=== PATIENT | female | born 1945 | race Caucasian/White ===

== ENCOUNTER 2025-07-25 10:30 | Outpatient (REF) | payer MEDICARE, SELFPAY ==
[2025-07-25 11:02] VITALS: BP 166/77; PULSE 67; RESP 16; O2SAT 96; BMI 35.2
--- OUTSIDE RECORDS SUMMARY | 2025-07-25 12:51 | XMS_ITS | Encounter Summary ---
Author Organization [facility] Address [address] [place] [id number] Phone Care Team Providers Care Window Glazier Name Role Phone Estiven Darling MD Unavailable Dariel Alberto PA-C Primary Care Provider [phone] Encounter Details Date Type Department Care Team (Late st Contact Info) Description 05/13/2025 Procedure Pass [facility], Ct Scan - [address] [address] Social History Tobacco Use Types Packs/Day Years Used Date Smoking Tobacco: Former Cigarettes 0.5 20 0 02/01/1975 - 02/01/1995 Smokeless Tobacco: Never Alcohol Use Standard Drinks/Week Comments Yes 0 (1 standard drink = 0.6 oz pur e alcohol) 1-2 drinks, 2-4 x month Child or Family Care Answer Date Record ed Do you have problems with on e of the following making it difficult for you to work, study, or receive health care? No 08/14/2022 Education Answer Date Recorded Are you interested in more education? Not on reyna e 08/18/2024 Are you concerned about learning? Not on file 08/18/2024 No 08/18/2024 No 08/18/2024 Food Answer Date Recorded Within the past 6 months we worried whether our food would run out before we got money to buy more. Never True 08/14/2022 Within the past 6 months the food we bought just didn't last and we didn't have enough money to get more. Never True Residential Stability Answer Date Recor ded What is your housing situation today? I have bob chahal 08/14/2022 How many times have you move d in the past 12 months? Zero (I did not move) 08/14/2022 Paying for Meds Answer Date Recorded Do you have trouble paying for medicines? No 08/14/2022 Paying Utility Bills Answer Date Record ed Do you have trouble paying your heating or elect ricity bill? No 08/14/2022 Transportation Answer Date Recorded Has the lack of transportati on kept you from medical appointments or from getting medications? No 08/14/2022 Unemployment Answer Date Recorded Are you currently unemployed or working on a part-time or temporary basis, and looking for work? No 08/14/2022 Digital Access Answer Date Recorded No 03/25/2023 No 03/25/2023 Reliable internet access at home? Not on file 03/25/2023 Device with a working camera? Not on file Intimate Partner Violence Answer Date R ecorded Denied Basic Needs Not on file 12/21/2024 In the past 12 months have y ou been in a relationship with a person who hurts, threatens, or tries to control you? No 12/21/2024 Worried food would run out Not on file 12/21 In the past 12 months have y ou been in a relationship with a person who hurts, threatens, or tries to control you? No 12/21/2024 Comments No Sex and Gender Information Value Date Recorded Sex Assigned at Female 05/09/2020 9:57 AM EDT Legal Sex Female 10:09 PM EDT Gender Identity Female 05/09/2020 9:57 AM EDT Sexual Orientation Not on file documented as of this encounter Plan of Treatment Upcoming Encounters Date Type Department Care Team (Latest Contact Info) Description 07/26/2025 3:00 PM EDT Office Visit [facility] [address] [place] [address] Dariel Alberto PA-C [address] [place] [address] [email or web address] 08/10/2025 10:00 AM EDT Office Visit [facility] [address] [address] Candy Kee PA-C [address] [place] [address] Orthopedics Sports [facility], [place] [address] [email or web address] 09/06/2025 Procedure Pass [place] Admitting Dept - Virtual Department [address] [place] [id number] 09/06/2025 7:30 AM EST Hospital Encounter OR Admitting Dept - Virtual Department [address] [place] [address] Fazal Salazar MD [address] [place] [address] [place] [address] [email or web address] 09/06/2025 7:30 AM EST - 09/06/2025 11:05 AM EST Surgery OR Admitting Dept - Virtual Department [address] [place] [address] Fazal Salazar MD [address] [place], [place] [address] [address] [email or web address] ARTHROPLASTY TOTAL KNEE 09/19/2025 4:00 PM EST Office Visit [facility] [address] [place] [address] Fazal Salazar MD [address] [place] [address] Orthopedics Sports [facility], [place] [address] [email or web address] 10/17/2025 1:30 PM EST Office Visit [facility] [address] [place] [address] Fazal Salazar MD [address] [place] [address] [facility] [place] [address] [email or web address] Scheduled Procedures Name Priority Associated Diagnoses Date/Ti me ARTHROPLASTY TOTAL KNEE Primary osteoarthritis of right knee 09/06/2025 7:30 AM EST documented as of this encounter Visit Diagnoses Not on filedocumented in this encounter Additional Health Concerns Assessment Noted Time PHQ-2 Depression Total Score: 0 12/21/19 7:54 AM EST documented as of this encounter Care Teams Window Glazier Relationship Specialty Start Date End Date Dariel Alberto PA-C [address] [place] [address] [email or web address] PCP - General Physician Source Inspector 06/18/24 Estiven Darling MD [address] [place] [address] [place] [address] Ophthalmology 05/17/20 documented as of this encounter Additional Source Comments The information contained in this document represents components of the legal health record. It is not the complete legal health record.[facility]
--- OUTSIDE RECORDS SUMMARY | 2025-07-25 12:53 | XMS_ITS | Clinical Summary ---
Author Organization [facility] Address [address] [facility] [address] [place] [phone] Phone Care Team Providers Care Airconditioning Drafting Officer Name Role Phone Estiven Darling MD Unavailable Dariel Alberto PA-C Primary Care Provider [phone] Allergies Active Allergy Reactions Criticality Noted Date Comments Other Swelling 02/05/2018 Bee stings Throat and localized swelling Penicillins Rash Low 02/05/2018 Medications cholecalciferol (VITAMIN D3) 1,000 unit tablet Take 1 tablet by mouth daily. Active MULTIVITAMIN ORAL Orally ONE CHEW GUMMIES DAILY Active magnesium oxide 500 mg Tab Take 250 mg by mouth every evening. As needed Active potassium chloride (KLOR-CON) 8 MEQ ER tablet Take 8 mEq by mouth daily. Active gabapentin (NEURONTIN) 300 MG capsule TAKE 2 CAPSULES (600 MG) BY MOUTH EVERY NIGHT AT BEDTIME 180 capsule 3 5 Active meloxicam (MOBIC) 15 MG tablet Take 1 tablet (15 mg total) by mouth daily as needed for pain 90 tablet 3 5 Active atorvastatin (LIPITOR) 20 MG tabletIndications: Mixed hyperlipidemia TAKE 1 TABLET BY MOUTH DAILY 90 tablet 3 5 Active losartan (COZAAR) 100 MG tabletIndications: Essential hypertension TAKE 1 TABLET BY MOUTH DAILY 90 tablet 5 Active acetaminophen/diph enhydramine (ACETAMINOPHEN PM ORAL) Take by mouth. Active dilTIAZem (CARDIZEM CD) 300 MG 24 hr capsule Take 1 capsule (300 mg total) by mouth daily. 30 capsule 2 5 Active oxyCODONE-acetamin ophen (PERCOCET) 5-325 mg per tabletIndications: Spondylolisthesis of lumbar region Take 1 tablet by mouth 2 (two) times a day as needed for pain (specific location in comments). 30 tablet 5 Active DILT-XR 240 mg 24 hr capsule TAKE 1 CAPSULE BY MOUTH DAILY 90 capsule 3 4 025 Discontin ued(No longer taking) oxyCODONE-acetamin ophen (PERCOCET) 5-325 mg per tabletIndications: Spondylolisthesis of lumbar region Take 1 tablet by mouth 2 (two) times a day as needed for pain (specific location in comments). 30 tablet 5 025 Discontin ued(Reord er) Active Problems Problem Noted Date Diagnosed Date Post-traumatic osteoarthritis of right knee 06/2025 Assessment & Plan (03/10/2025 4:13 PM EDT): Intra-articular steroid injection today as detailed in procedure note. I explained to the patient and her daughter that her knee alignment is abnormal enough that non-surgical mgmt may prove inadequate. She is not currently interested in surgical intervention so hopefully the intra-articular steroid injection will afford her at least short-term relief. We discussed trial off meloxicam to help patrol judge if benefit > risk. Given that there is no clinical evidence concerning for underlying or co- morbid inflammatory arthritis, there is no indication for ongoing rheum-specific mgmt. I recommend referral to Dr. Faulkner of [facility] sports medicine for further mgmt. I did complete paperwork for a handicapped parking placard today on the request of the patient's daughter. Routine general medical exam ination at a health care facility 12/23/2024 Chronic midline low back pain without sciatica 0 12/23/2024 Long-term current use of opiate analgesic 2023 Assessment & Plan (09/01/2024 2:03 PM EDT): Opiate agreement signed with U tox Weight gain 09/01/2024 Assessment & Plan (09/01/2024 2:04 PM EDT): Patient states that she has gained weight but feels that this is most likely related to diet. We will obtain a TSH level as she has not had 1 in the past. 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 Patient has been seen at [facility] and pain management in the past. She is managed on Percocet and gabapentin. She had been on the meloxicam however states that this has not provided much relief. 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 Patient has been seen at [facility] in the past. She is managed on Percocet and gabapentin. She had been on the meloxicam however states that this has not provided much relief. U-Tox obtained today Opiate agreement signed today. Essential hypertension 02/05/2018 Assessment & Plan (06/28/2025 4:28 PM EDT): Patient with a history of hypertension who is on diltiazem 240 mg daily and losartan 100 mg daily noted to have elevated systolic pressures initially on arrival. After repeat blood pressure she was noted to be 152/98 given this elevated blood pressure and upcoming knee surgery I would prefer to get her blood pressure well- controlled therefore we had a long discussion with regards to medications. I will bump her diltiazem up to 300 mg daily and keep her losartan at 100 mg daily and she will need to come in for a blood pressure check in 1 week. She is due to see me for a preop visit in 1 month. Assessment & Plan (09/01/2024 1:58 PM EDT): Well-controlled Continue diltiazem 240 mg p.o. daily and losartan 100 mg p.o. daily Mixed hyperlipidemia 02/05/2018 Assessment & Plan (06/28/2025 4:29 PM EDT): Patient with a past medical history of hyperlipidemia who is maintained on Lipitor 20 mg daily with her last lipid panel being within normal limits in December 2024. We will continue Lipitor 20 mg daily and obtain a repeat lipid panel. Assessment & Plan (09/01/2024 1:59 PM EDT): Last lipid panel was well within normal limits in December 2023. Continue Lipitor 20 mg p.o. daily Chronic pain of both knees 02/05/2018 Assessment & Plan (09/01/2024 2:05 PM EDT): Knee pain noted bilaterally which has been ongoing for quite some time. Patient states that she has been using the Mobic but has not noticed a difference in her pain. She has used also the Voltaren gel without any relief. She has used the CBD gel which has provided some relief. We will obtain a CRP, ESR, rheumatoid factor, STEPHON, and Lyme Resolved Problems Problem Noted Date Diagnosed Date Resolved Date Elevated alkaline phosphatase level 12/23/2024 06/28/2025 Age-related cataract of both eyes 06/02/2020 09/01/2024 Elevated LDL cholesterol level 02/05/2018 09/01/2024 History of colon polyps 02/05/201808/05 Osteopenia 02/05/2018 09/01/2024 Tubular adenoma of colon 02/05/2018 Incisional hernia, without o bstruction or gangrene 02/05/2018 09/01/2024 Encounters Date Type Department Care Team Description 07/12/2025 11:00 AM EDT Nurse Only [facility] [address] [facility] [place] [address] Dariel Alberto PA-C Essential hypertension (Primary Dx); Blood pressure check 07/12/2025 Telephone [facility] [address] [facility] [place] [address] Dariel Alberto PA-C Results 06/28/2025 4:02 PM EDT - 06/28/2025 11:59 PM EDT Hospital Encounter [facility] [address] [place] [address] Dariel Alberto PA-C Discharge Disposition: Home or Self Care 06/28/2025 2:40 PM EDT Office Visit [facility] [address] [place] [address] Dariel Alberto PA-C Spondylolisthesis of lumbar region (Primary Dx); Long-term current use of opiate analgesic; Mixed hyperlipidemia; Radiculopathy of lumbar region; Essential hypertension 06/28/[address] [address] Jessica Villasenor Appointment 06/07/2025 12:17 PM EDT - 06/07/2025 11:59 PM EDT Hospital Encounter [facility], Ct Scan - [facility] [address] [place] [address] Fazal Salazar MD Discharge Disposition: Home or Self Care 05/24/2025 Telephone [facility] [address] [place] [address] Fazal Salazar MD Rheumatology Clearance 05/18/2025 12:36 PM EDT - 05/18/2025 11:59 PM EDT Hospital Encounter [facility] [address] [place] [address] Fazal Salazar MD Discharge Disposition: Home or Self Care 05/13/2025 2:00 PM EDT Office Visit [facility] [address] [place] [address] [place] [address] Fazal Salazar MD Primary osteoarthritis of right knee (Primary Dx) 05/13/2025 12:58 PM EDT - 05/13/2025 11:59 PM EDT Hospital Encounter [facility], X-Ray - [address] [place] [id number] Fazal Salazar MD Discharge Disposition: Home or Self Care 05/13/2025 Procedure Pass [facility], Ct Scan - [facility] [address] [place] [address] 05/09/2025 Orders Only [facility] [address] [place] [address] Myra Rinaldi MA Right knee pain (Primary Dx) from Last 3 Months Immunizations Immunization Administration Dates Next Due COVID-19 (Pre-08/25) Pfizer Vaccine, mRNA, PF 08/01/2021,12/30/2020,12/08/2020 INFLUENZA, SPLIT VIRUS, TRIV ALENT W/ PRESERVATIVE IM 07/29/2012,07/12/2011 Influenza High-Dose Quadriva lent Preservative Free IM 08/20/2022,07/19/2020 Influenza High-Dose Trivalen t Preservative Free IM 09/01/2024,07/23/2018,08/15/2016,08/04 Influenza Quadrivalent Adjuv anted Preservative Free IM 08/17/2023,08/01/2021 Influenza Quadrivalent MDCK w/Preservative IM 07/21/2019 Influenza, Unspecified Formulation 07/23/2018 Pneumococcal conjugate PCV13 09/08/2014 Pneumococcal polysaccharide PPSV23 02/05/2018 Td (adult) 5 Lf Tetanus Toxo id, PF, Adsorbed 05/22/2012 Td (adult),2 Lf Tetanus Toxo id, PF, Adsorbed 01/08/2016 Zoster recombinant 07/19/2020,05/09/2020 Family History Medical History Relation Comments Atrial fibrillation Brother 1 Leukemia Brother 1 Leukemia Brother 2 No Known Problems Daughter Stroke Father Subarachnoid hemorrhage Mother Liver disease Son Relation Status Comments Brother 1 Alive Brother 2 Alive Daughter Alive Father (Age 79) Mother (Age 91) Son Alive Social History Tobacco Use Types Packs/Day Years Used Date Smoking Tobacco: Former Cigarettes 0.5 20 0 02/01/1975 - 02/01/1995 Smokeless Tobacco: Never Tobacco Cessation:Counseling Given: Not Answered Alcohol Use Standard Drinks/Week Comments Yes 0 [...] your housing situation today? I have bob sing 08/14/2022 How many times have you move [...] AM EDT Sexual Orientation Not on file Last Filed Vital Signs Vital Sign Reading Time Taken Comments Blood Pressure 148/80 07/12/2025 10:53 AM EDT Pulse 65 07/12/2025 10:53 AM EDT Temperature 36.4 C (97.6 F) 09/01/2024 12:59 PM EDT Respiratory Rate 23 07/12/2025 10:53 AM EDT Oxygen Saturation 98% 07/12/2025 10:53 AM EDT Inhaled Oxygen Concentration - - Weight 85.5 kg (188 lb 9.6 oz) 06/28/2025 2:42 P M EDT Height 151.1 cm (4' 11.49 ) 06/28/2025 2:42 PM E DT Body Mass Index 37.47 06/28/2025 2:42 PM EDT Plan of Treatment Upcoming Encounters Date Type Department Care Team (Latest Contact Info) Description 07/26/2025 3:00 PM EDT Office Visit [facility] [address] [place] [address] Dariel Alberto PA-C [address] [place] [address] [email or web address] 08/10/2025 10:00 AM EDT Office Visit [facility] [address] [place] [address] Candy Kee PA-C [address] [place] [address] [facility] [place], [place] [address] [email or web address] 09/06/2025 Procedure Pass OR Admitting Dept - Virtual Department [address] [place] [id number] 09/06/2025 7:30 AM EST Hospital Encounter OR Admitting Dept - Virtual Department [address] [place] [address] Fazal Salazar MD [address] [place] [address] Orthoped[facility] Medicine, [place], [place] [id number] [email or web address] 09/06/2025 7:30 AM EST - 09/06/2025 11:05 AM EST Surgery OR Admitting Dept - Virtual Department [address] [place] [phone] Fazal Salazar MD [address] [place] [address] Orthopedics Sports [facility], [place] [address] [email or web address] ARTHROPLASTY TOTAL KNEE 09/19/2025 4:00 PM EST Office Visit [facility] [address] [place] [address] Fazal Salazar MD [address] [place] [address] Orthopedics Sports [facility], [place] [address] [email or web address] 10/17/2025 1:30 PM EST Office Visit [facility] [address] [place] [address] Fazal Salazar MD [address] [place] [address] Orthopedics Sports [facility], [place] [address] [email or web address] Scheduled Procedures Name Priority Associated Diagnoses Date/Ti me ARTHROPLASTY TOTAL KNEE Primary osteoarthritis of right knee 09/06/2025 7:30 AM EST Health Maintenance Due Date Last Done Comments RSV VACCINE (1 - 1-dose 75+ series) 01/10/2020 INFLUENZA VACCINE (#1) 2025 , 08/17/2023, 08/20/2022, Additional history exists COVID-19 VACCINE (2024- season) 2025 08/01/2021, 12/30/2020, 12/08/2020 DEPRESSION SCREENING 12/21/2025 12/21/2024 FOLLOW UP BONE DENSITY TESTING 12/23/2025 02/11/2018 Postponed from 02/12/2020 (Patient Declines / Guardian Declines) Adult Td,Tdap Booster 01/07/2026 01/08/2016, 012 BLOOD PRESSURE 2026 07/12/2025 CREATININE LEVEL 06/28/2026 06/28/2025, , 12/17/2023, Additional history exists POTASSIUM LEVEL 06/28/2026 06/28/2025, 12/04, 12/17/2023, Additional history exists LIPID PANEL 06/28/2030 06/28/2025, 12/04, 12/17/2023, Additional history exists PNEUMOCOCCAL VACCINES (50+ years) Completed 02/05/2018, 09/08/2014 OSTEOPOROSIS SCREENING INITIAL (ONE-TIME) Completed 02/11/2018 ZOSTER VACCINES Completed 07/19/2020, 05/09/2020 SMOKING STATUS SCREENING (Once After 26 Yrs) Completed 06/28/2025 HEPATITIS A VACCINES Aged Out No long er eligible based on patient's age to complete this topic HIB VACCINES Aged Out No longer eligi ble based on patient's age to complete this topic MENINGOCOCCAL VACCINES (ACWY) Aged Out No longer eligible based on patient's age to complete this topic MENINGOCOCCAL VACCINES (B) Aged Out N o longer eligible based on patient's age to complete this topic Medical Devices Not on file Procedures Procedure Name Priority Date/Time Associated Diagnosis Comments ANTIBODY SCREEN Routine 06/28/2025 4:04 PM EDT Primary osteoarthritis of right knee ABO AND RH Routine 06/28/2025 4:04 PM EDT Primary osteoarthritis of right knee HEMOGLOBIN A1C Routine 06/28/2025 4:04 PM EDT Primary osteoarthritis of right knee BASIC METABOLIC PANEL Routine 06/28/2025 4:04 PM EDT Primary osteoarthritis of right knee CBC AND DIFFERENTIAL Routine 06/28/2025 4:04 PM EDT Primary osteoarthritis of right knee LIPID PANEL Routine 06/28/2025 4:04 PM EDT Mixed hyperlipidemia TOXICOLOGY SCREEN, URINE Routine 06/28/2025 4:00 PM EDT Spondylolisthesis of lumbar region Long-term current use of opiate analgesic Radiculopathy of lumbar region CT KNEE WITHOUT CONTRAST (RIGHT) Routine 06/07/2025 12:35 PM EDT Primary osteoarthritis of right knee ECG 12-LEAD Routine 05/18/2025 12:44 PM EDT Primary osteoarthritis of right knee XR KNEE 4 OR MORE VIEWS (RIGHT) Routine 05/13/2025 1:44 PM EDT Right knee pain OUTSIDE BONE DENSITY SCREENING Routine 02/11/2018 from Last 3 Months or Most Recently Relevant to Health Maintenance Results * ABO and Rh (06/28/2025 4:04 PM EDT) ABO/Rh O Positive [facility] Resulting Agency [facility] Blood 06/28/2025 4:04 PM EDT 06/28/2025 4:10 PM EDT us Fazal Salazar MD BLOOD BANK TEST ORDERAB LES Final Result [facility] [address] [place] [address] * CBC and differential (06/28/2025 4:04 PM EDT) WBC 9.79 4.00 - 11.00 K/uL [facility] RBC 4.27 4.00 - 5.20 M/uL [facility] HGB 13.0 12.0 - 16.0 g/dL [facility] HCT 40.1 36.0 - 46.0 % [facility] PLT 364 150 - 450 K/uL [facility] MCV 93.9 80.0 - 100.0 fL [facility] MCH 30.4 27.0 - 31.0 pg [facility] MCHC 32.4 32.0 - 36.0 g/dL [facility] RDW 13.0 11.5 - 14.5 % [facility] MPV 10.0 8.4 - 12.0 fL [facility] NRBC 0.00 0.00 /100 WBCs [facility] ABSOLUTE NRBC 0.00 0.00 K/uL [facility] DIFF METHOD Auto [facility] NEUTS 68.3 48.0 - 76.0 % [facility] LYMPHS 23.0 18.0 - 41.0 % [facility] MONOS 6.5 4.0 - 11.0 % [facility] EOS 1.1 0.0 - 5.0 % [facility] BASOS 0.7 0.0 - 1.5 % [facility] Granulocytes, immature (%) 0.4 0.0 - 0.9 % [facility] ABSOLUTE NEUTS 6.68 1.92 - 7.60 K/uL [facility] ABSOLUTE LYMPHS 2.25 0.72 - 4.10 K/uL [facility] ABSOLUTE MONOS 0.64 0.16 - 1.10 K/uL [facility] ABSOLUTE EOS 0.11 0.00 - 0.50 K/uL [facility] ABSOLUTE BASOS 0.07 0.00 - 0.15 K/uL [facility] Granulocytes, immature 0.04 0.00 - 0.09 K/uL [facility] Blood 06/28/2025 4:04 PM EDT 06/28/2025 4:10 PM EDT us Fazal Salazar MD LAB BLOOD ORDERABLES Fi nal Result [address] [address] * Antibody Screen (06/28/2025 4:04 PM EDT) Antibody Screen Negative [facility] Resulting Agency [facility] Blood 06/28/2025 4:04 PM EDT 06/28/2025 4:10 PM EDT us Fazal Salazar MD BLOOD BANK TEST ORDERAB LES Final Result [address] [address] * Hemoglobin A1c (06/28/2025 4:04 PM EDT) HEMOGLOBIN A1C 5.4 4.3 - 5.8 % [facility] Blood 06/28/2025 4:04 PM EDT 06/28/2025 4:10 PM EDT us Fazal Salazar MD LAB BLOOD ORDERABLES Fi nal Result [address] [address] * (ABNORMAL) Lipid panel (06/28/2025 4:04 PM EDT) [facility] HDL 69 mg/dL [facility] Comment: Interpretation <40 mg/dL: Low HDL cholesterol (major risk factor for CHD) Greater than or equal to 60 mg/dL: High HDL cholesterol ( negative risk factor for CHD) HDL - cholesterol is affected by a number of factors, e.g. smoking, excerise, hormones, sex and age. CHOLESTEROL 200 0 - 240 mg/dL [facility] TRIGLYCERIDES 119 30 - 160 mg/dL [facility] LDL 107 50 - 129 mg/dL [facility] Comment: LDL levels in terms of risk for coronary heart disease: <100 mg/dL: Optimal 100-129 mg/dL: Near or above optimal 130-159 mg/dL: Borderline high 160-189 mg/dL: High >190 mg/dL: Very High CARDIAC RISK RATIO 2.9(L) 3.3 - 4.4 C [facility] Blood 06/28/2025 4:04 PM EDT 06/28/2025 4:11 PM EDT us Dariel Alberto PA-C LAB BLOOD ORDERABLES Final Re sult [address] [address] * (ABNORMAL) Basic metabolic panel (06/28/2025 4:04 PM EDT) Pathologist [facility] SODIUM 136 133 - 146 mmol/L [facility] CHLORIDE 99 96 - 108 mmol/L [facility] POTASSIUM 4.6 3.3 - 5.1 mmol/L [facility] CO2 22 21 - 35 mmol/L [facility] BUN 30(H) 6 - 19 mg/dL [facility] CREATININE 1.00 0.5 - 1.5 mg/dL [facility] GLUCOSE 93 70 - 99 mg/dL [facility] CALCIUM 10.5(H) 8.4 - 10.3 mg/dL [facility] EGFR 57(L) >59 mL/min/1.7 3m2 [facility] Comment:Estimated glomerular filtration rate calculated using the CKD-EPI refit equation. ANION GAP 20 10 - 20 mmol/L [facility] Blood 06/28/2025 4:04 PM EDT 06/28/2025 4:10 PM EDT us Fazal Salazar MD LAB BLOOD ORDERABLES Fi nal Result Performing Organization Address City/State/[facility] Co de Phone Number [facility] [address] [place] [address] * Toxicology screen, urine (06/28/2025 4:00 PM EDT) Pathologist [facility] URINE CANNABINOIDS NONE DETECTED NONE DETECTED [facility] Comment:Cutoff: 50 ng/mL URINE COCAINE METAB NONE DETECTED NONE DETECTED [facility] Comment:Cutoff: 300 ng/mL URINE AMPHETAMINES NONE DETECTED NONE DETECTED [facility] Comment:Cutoff: 1000 ng/mL URINE METHADONE NONE DETECTED NONE DETECTED [facility] Comment:Cutoff: 300 ng/mL URINE OPIATES NONE DETECTED NONE DETECTED [facility] Comment:Cutoff: 300 ng/mL URINE PHENCYCLIDINE NONE DETECTED NONE DETECTED [facility] Comment:Cutoff: 25 ng/mL URINE OXYCODONE NONE DETECTED NONE DETECTED [facility] Comment:Cutoff: 300 ng/mL URINE BARBITURATES NONE DETECTED NONE DETECTED [facility] Comment:Cutoff: 200 ng/mL URINE BENZODIAZEPINE NONE DETECTED NONE DETECTED [facility] Comment:Cutoff: 200 ng/mL URINE BUPRENORPHINE NONE DETECTED NONE DETECTED [facility] Comment:Cutoff: 5 ng/mL Fentanyl, urine NONE DETECTED NONE DETECTED [facility] Comment: Cutoff: 5 ng/mL INTERPRETATION FOR TOXICOLOGY PANEL: These results are unconfirmed and should be used for Medical Treatment purposes only. Urine (Urine) 06/28/2025 4:0 0 PM EDT 06/29/2025 8:38 AM EDT us Dariel Alberto PA-C URINE ORDERABLES Final Result Performing Organization Address City/State/[facility] Co de Phone Number [address] [address] * CT KNEE WITHOUT CONTRAST (RIGHT) (06/07/2025 12:35 PM EDT) Anatomical Region Laterality Modality Knee Right Computed Tomogra phy 06/09/2025 1:55 AM EDT Impressions 06/09/2025 1:57 AM EDT Right knee tricompartmental osteoarthritis, severe in the lateral compartment. Narrative 06/09/2025 1:[address] KNEE WITHOUT CONTRAST (RIGHT) REQUESTED INDICATION: * Knee pain, chronic, degenerative disease on xray (Age >= 5y); Preoperative planning osteophyte mapping TECHNIQUE: CT KNEE WITHOUT CONTRAST (RIGHT). Arthroplasty planning protocol. Dose-modulation techniques used. COMPARISON: XR KNEE 4 OR MORE VIEWS (RIGHT) FINDINGS: PELVIS: Visualized pelvic ring intact. No displaced fracture. Partially visualized ventral hernia containing loops of small and large bowel. Colonic diverticulosis. Hysterectomy. Pelvic floor descent. HIP: No bone, joint, or soft tissue abnormality. KNEE: Knee joint space narrowing with subchondral sclerosis, bony proliferative change, and [id number]-[id number]-[id number] contact is severe in the lateral, mild to moderate in the medial, and mild to moderate in the patellofemoral compartments.. Quadriceps enthesopathy is at the superior patellar pole. Large joint effusion decompressing into a Cardenas's cyst. Moderate vascular calcification. Mild global muscle atrophy. No acute fracture or dislocation. ANKLE: Ankle mortise symmetric. Mild to moderate subtalar osteoarthritis. Mild distal Achilles calcific enthesopathy. Procedure Note Kim Adams MD - 06/09/2025 CT KNEE WITHOUT CONTRAST (RIGHT) REQUESTED INDICATION: * Knee pain, chronic, degenerative disease on xray(Age >= 5y); Preoperative planning osteophyte mapping TECHNIQUE: CT KNEE WITHOUT CONTRAST (RIGHT). Arthroplasty planningprotocol. Dose-modulation techniques used. COMPARISON: XR KNEE 4 OR MORE VIEWS (RIGHT) FINDINGS: PELVIS: Visualized pelvic ring intact. No displaced fracture. Partiallyvisualized ventral hernia containing loops of small and large bowel.Colonic diverticulosis. Hysterectomy. Pelvic floor descent. HIP: No bone, joint, or soft tissue abnormality. KNEE: Knee joint space narrowing with subchondral sclerosis, bonyproliferative change, and [id number] contact is severe in the lateral,mild to moderate in the medial, and mild to moderate in the patellofemoralcompartments.. Quadriceps enthesopathy is at the superior patellar pole.Large joint effusion decompressing into a Cardenas's cyst. Moderate vascularcalcification. Mild global muscle atrophy. No acute fracture ordislocation. ANKLE: Ankle mortise symmetric. Mild to moderate subtalar osteoarthritis.Mild distal Achilles calcific enthesopathy. IMPRESSION: Right knee tricompartmental osteoarthritis, severe in the lateralcompartment. Fazal Salazar MD IMG CT EXTREMITY Final Result * ECG 12-LEAD (05/18/2025 12:44 PM EDT) Ventricular Rate EKG/MIN 80 BPM [facility] Atrial Rate 80 BPM [facility] UT Interval 164 ms [facility] QRS Duration 92 ms [facility] QT Interval 364 ms [facility] QTC Interval 419 ms [facility] P Carney 18 degrees [facility] R Wave Carney 19 degrees [facility] T Wave Carney 35 degrees [facility] 05/18/2025 12:4 4 PM EDT 05/19/2025 7:34 AM EDT Narrative [facility] - 05/19/2025 7:34 AM EDT Normal sinus rhythm Normal ECG No previous ECGs available Confirmed by Magdy Webster ([id number]) on 05/19/2025 7:34:05 AM Fazal Salazar MD ECG ORDERABLES Final R esult [facility] * XR KNEE 4 OR MORE VIEWS (RIGHT) (05/13/2025 1:44 PM EDT) Anatomical Region Laterality Modality Knee Right Computed Radiogr aphy 05/14/2025 12:4 9 PM EDT Narrative 05/14/2025 12:50 PM EDT XR KNEE 4 OR MORE VIEWS (RIGHT) Referring clinician's provided indication for this examination in [facility]: Pain COMPARISON: October 28, 2019 FINDINGS: Severe osteoarthritis in the medial compartment of the right knee joint. Moderate in the other compartments. Small suprapatellar joint effusion. No evidence of fracture or dislocation. Procedure Note Michael Espino MD, JUANIS - 05/14/2025 XR KNEE 4 OR MORE VIEWS (RIGHT) Referring clinician's provided indication for this examination in [facility]:Pain COMPARISON: October 28, 2019 FINDINGS: Severe osteoarthritis in the medial compartment of the right knee joint.Moderate in the other compartments. Small suprapatellar joint effusion. No evidence of fracture or dislocation. Fazal Salazar MD IMG XR LOWER EXTREMITY Final Result * OUTSIDE BONE DENSITY SCREENING (02/11/2018) [facility] BONE DENSITY SCREENING - [facility] Historical Provider HEALTH MAINTENANCE Final Result from Last 3 Months or Most Recently Relevant to Health Maintenance Insurance MEDICARE PART A & B [employer] MEDEX SUPPLEMENT MEDICARE PART A & B [employer] MEDEX SUPPLEMENT MEDICARE PART A & B [employer] MEDEX SUPPLEMENT MEDICARE PART A & B [employer] MEDEX SUPPLEMENT MEDICARE PART A & B [employer] SUPPLEMENT MEDICARE PART A & B [employer] MEDEX SUPPLEMENT MEDICARE PART A & B Member Subscriber Plan / Payer (Ef fective 2010-Present) Name:Alejandrina Young Member ID:[id number] Relation to Subscriber:Self Name:Alejandrina Young Subscriber ID:[id number] Payer ID:[id number] Group ID:Not on file Type:Medicare Address: [employer] [facility].[address] [address] [facility] MEDEX SUPPLEMENT MEDICARE PART A & B [employer] MEDEX SUPPLEMENT MEDICARE PART A & B [employer] MEDEX SUPPLEMENT Advance Directives For more information, please contact: [phone] (9AM - 5PM [facility], Friday-Friday) Documents on File Type Date Recorded Patient Union Laborer Expl anation Healthcare Proxy 02/05/2018 10:20 AM Health care Proxy Healthcare Proxy 07/12/2025 Healthcare Proxy scan 07/12/2025 Care Teams Airconditioning Drafting Officer Relationship Specialty Start Date End Date Dariel Alberto PA-C [address] [place] [phone] [email or web address] PCP - General Physician Entry Level Truck Driver 06/18/24 Estiven Darling MD [address] [place] [address] [place] [id number] Ophthalmology 05/17/20 Additional Source Comments The information contained in this document represents components of the legal health record. It is not the complete legal health record.[facility]
--- OUTSIDE RECORDS SUMMARY | 2025-07-25 12:53 | XMS_ITS | Encounter Summary ---
Author Organization [facility] Address [address] [place] [address] Phone Care Team Providers Care Quality Assurance Supervisor Chassis Name Role Phone Tres Wallace MD Unavailable [phone] Noemi Cedeño MD Unavailable [phone] Ingrid Borjas NP Unavailable Mumtaz Toribio MD Unavailable Samantha Donovan DECKHAND [employer] DREDGE Unavailable [phone] Samantha Donovan NP Primary Care Provider Tres Wallace MD Unavailable [phone] Estiven Darling MD Unavailable Gita Ryan CNP Primary Care Provid er Dariel Alberto PA-C Primary Care Provider [phone] Encounter Details Date Type Department Care Team (Latest Contact Info) Description 10/28/2019 Ancillary Orders [facility], X-Ray - [address] [place] [address] Emely Sherwood, DECKHAND [employer]YSTER DREDGE [address] [place] [phone] [email or web address] Bilateral primary osteoarthritis of knee Social History Tobacco Use Types Packs/Day Years Used Date Smoking Tobacco: Former Cigarettes 0.5 20 0 02/01/1975 - 02/01/1995 Smokeless Tobacco: Never Alcohol Use Standard Drinks/Week Comments Yes 0 (1 standard drink = 0.6 oz pur e alcohol) 2 beers per month Comments Unknown Sex and Gender Information Value Date Recorded Sex Assigned at Female 05/09/2020 9:57 AM EDT Legal Sex Female 10:09 PM EDT Gender Identity Female 05/09/2020 9:57 AM EDT Sexual Orientation Not on file documented as of this encounter Plan of Treatment Upcoming Encounters Date Type Department Care Team (Latest Contact Info) Description 07/26/2025 3:00 PM EDT Office Visit [facility] Internal Medicine [address] [place] [phone] Dariel Alberto PA-C [address] [place] [address] [email or web address] 08/10/2025 10:00 AM EDT Office Visit [facility] Orthopedics & Sports Medicine [address] [place] [phone] Candy Kee PA-C [address] [place] [address] Orthopedics & Sports Medicine, [place], [place] [phone] [email or web address] 09/06/2025 Procedure Pass OR Admitting Dept - Virtual Department [address] [place] [phone] 09/06/2025 7:30 AM EST Hospital Encounter OR Admitting Dept - Virtual Department [address] [place] [phone] Fazal Salazar MD [address] [place] [address] Orthopedics & Sports Medicine, [place] [address] [email or web address] 09/06/2025 7:30 AM EST - 09/06/2025 11:05 AM EST Surgery OR Admitting Dept - Virtual Department [address] [place] [address] Fazal Salazar MD 4 [facility] Orthopedics [facility], [place] [address] [email or web address] ARTHROPLASTY TOTAL KNEE 09/19/2025 4:00 PM EST Office Visit [facility] Orthopedics & Sports Medicine [address] [place] [address] [place] [address] Fazal Salazar MD 4 [facility] Orthoped[facility], [place] [address] [email or web address] 10/17/2025 1:30 PM EST Office Visit [facility] Orthopedics & Sports [address] [place] [address] Fazal Salazar MD [address] [place] [address] Orthopedics [facility], [place] [address] [email or web address] Scheduled Procedures Name Priority Associated Diagnoses Date/Ti me ARTHROPLASTY TOTAL KNEE Primary osteoarthritis of right knee 09/06/2025 7:30 AM EST documented as of this encounter Results * XR KNEE 1-2 VIEWS (BILATERAL) (10/28/2019 9:44 AM EST) Anatomical Region Laterality Modality Knee Bilateral, Knee Right, Knee Left Radiographic Imaging 10/28/2019 9:54 AM EST Impressions 10/28/2019 9:56 AM EST Osteoarthritic changes most pronounced in the lateral compartments. POS - [id number] Narrative 10/28/2019 9:56 AM EST COMPARISON: None FINDINGS: AP weightbearing and lateral views of the right knee disclose narrowing of the lateral compartment with sclerosis of the opposing articular surfaces, periarticular spurring, and mild valgus deformity. Milder osteoarthritic change in the patellofemoral compartment. No traumatic or destructive bony abnormality or gross suprapatellar effusion. AP weightbearing and lateral views of the left knee disclose narrowing of the lateral compartment with periarticular spurring, sclerosis of the articular surfaces, and mild varus deformity. Milder osteoarthritic change in the patellofemoral compartment. There is mild upper pole patellar spurring. No gross suprapatellar effusion. No traumatic or destructive bony abnormality. Procedure Note Susana George MD - 10/28/2019 COMPARISON: None FINDINGS: AP weightbearing and lateral views of the right knee disclose narrowing ofthe lateral compartment with sclerosis of the opposing articular surfaces,periarticular spurring, and mild valgus deformity. Milder osteoarthriticchange in the patellofemoral compartment. No traumatic or destructivebony abnormality or gross suprapatellar effusion. AP weightbearing and lateral views of the left knee disclose narrowing ofthe lateral compartment with periarticular spurring, sclerosis of thearticular surfaces, and mild varus deformity. Milder osteoarthriticchange in the patellofemoral compartment. There is mild upper polepatellar spurring. No gross suprapatellar effusion. No traumatic ordestructive bony abnormality. IMPRESSION: Osteoarthritic changes most pronounced in the lateral compartments. POS - [id number] us Emely Sherwood NP IMG XR LOWER EXTREMITY Final Res ult documented in this encounter Visit Diagnoses Diagnosis Bilateral primary osteoarthritis of knee Bilateral primary osteoarthritis of knee Pre-op exam- Primary Primary osteoarthritis of right knee documented in this encounter Additional Health Concerns Infection Onset Date Last Indicated Resolved Time CoV-Presumed 09/10/2022 09/10/2022 10/01/2022 1:31 AM EST Assessment Noted Time PHQ-2 Depression Total Score: 0 02/11/20 19 10:57 AM EDT documented as of this encounter Care Teams Quality Assurance Supervisor Chassis Relationship Specialty Start Date End Date Samantha Donovan NP [address] [place] [phone] [email or web address] PCP - General Family Medicine 02/05/18 01/07/24 Gita Ryan, LINE FIXER [address] [place] [address] [email or web address] PCP - General Family Medicine 01/08/24 06/17/24 Dariel Alberto PA-C [address] [place] [address] PCP - General Physician Cistern Room Working Supervisor 06/18/24 Tres Wallace MD [address] [place] [address] Historical LMR Provider 08/24/17 05/07/20 Noemi Cedeño MD [address] [facility], [address] [place] [address] [email or web address] Historical LMR Provider 08/24/17 Ingrid Borjas NP [address] [place] [phone] Historical LMR Provider 08/24/17 0 Mumtaz Toribio MD [address] [place] [address] [email or web address] Historical LMR Provider 08/24/17 05/07/20 Samantha Donovan NP [address] [place] [address] [address] [place] [address] Historical LMR Provider 08/24/17 05/07/20 Tres Wallace MD [address] [place] [address] [email or web address] Insurance Assigned Provider 02/09/20 11/11/20 Estiven Darling MD [address] [place] [address] [place] [address] Ophthalmology 05/17/20 documented as of this encounter Additional Source Comments The information contained in this document represents components of the legal health record. It is not the complete legal health record.[facility]
--- OUTSIDE RECORDS SUMMARY | 2025-07-25 12:53 | XMS_ITS | Clinical Summary ---
Author Organization [facility] Address [address] [place] [address] Phone Care Team Providers Care Wash Box Operator Name Role Phone Dariel Alberto Primary Care Provider Family History Medical History Relation Name Comments Breast cancer Mother Breast cancer Mother's Sister Relation Name Status Comments Mother Mother's Sister Alive Social History Tobacco Use Types Packs/Day Years Used Date Smoking Tobacco: Never Assessed Comments No Sex and Gender Information Value Date Recorded Sex Assigned at Not on file Legal Sex Female 5:16 AM EST Gender Identity Not on file Sexual Orientation Not on file Obstetrics History Para Term AB IAB SAB Ectopic Multiple Livin g Live Births 2 Last Filed Vital Signs Vital Sign Reading Time Taken Comments Blood Pressure - - Pulse - - Temperature - - Respiratory Rate - - Oxygen Saturation - - Inhaled Oxygen Concentration - - Weight - - Height 152.4 cm (5') 01/14/2025 12:59 PM EDT Body Mass Index - - Plan of Treatment Health Maintenance Due Date Last Done Comments RSV Immunization Adult Patients (1 - 1-dose 75+ series) 01/10/2020 Falls Risk Assessment 10/06/2022 Medicare Annual Wellness Visit 10/06/2022 Osteoporosis Screening (Bone Density Screening) 10/06/2022 Social Influencers of Health Screening 10/06/2022 Depression Screening 11/03/2024 COVID-19 Vaccine ( season) 2025 08/01/2021, 12/30/2020, 12/08/2020 Influenza Vaccine (#1) 2025 4, 08/17/2023, 08/20/2022, Additional history exists Hypertension/CHF/CAD Annual BMP Blood Test 12/22/2025 12/22/2024, 12/17/2023, 03/08/2022, Additional history exists DTaP,Tdap,and Td Vaccines (3 - Td or Tdap) 01/07/2026 01/08/2016, 05/22/2012 Cholesterol Screening (Lipid Panel) 12/22/2029 12/22/2024 Pneumococcal Vaccine: 50+ Years Completed 02/05/2018, 09/08/2014 Zoster Vaccines Completed 07/19/2020, 05/09/2020 HIB Vaccines Aged Out No longer eligi ble based on patient's age to complete this topic HPV Vaccines Aged Out No longer eligi ble based on patient's age to complete this topic Hepatitis A Vaccines Aged Out No long er eligible based on patient's age to complete this topic Hepatitis B Vaccines Aged Out No long er eligible based on patient's age to complete this topic IPV Vaccines Aged Out No longer eligi ble based on patient's age to complete this topic MMR Vaccines Aged Out No longer eligi ble based on patient's age to complete this topic Meningococcal ACWY Vaccine Aged Out N o longer eligible based on patient's age to complete this topic Meningococcal B Vaccine Aged Out No l onger eligible based on patient's age to complete this topic RSV Immunization Patients Under 20 months Aged Out No longer eligible based on patient's age to complete this topic Varicella Vaccines Aged Out No longer eligible based on patient's age to complete this topic Insurance MEDICARE [facility] Care Teams Wash Box Operator Relationship Specialty Start Date End Date Dariel Alberto PA [address] [place] [phone] PCP - General Internal Medicine 10/19/24
== END 2025-07-25 10:31 | disposition home or self-care (01) ==
LOC: HO.MS 10:30
PROVIDERS: PCP Physician Assistant Surgical; Visit Provider Ophthalmology
PROC: (CPT 66821; principal; 2025-07-25 13:00)
DX: H26.491 Other secondary cataract, right eye (principal)
CPT/HCPCS: 66821